=== PATIENT | male | born 1995 | race Caucasian/White ===

== ENCOUNTER 2016-12-31 14:54 | Emergency (ER) | payer OTHER ==
[~2016-12-31] VITALS: Ht 175.2 cm; Wt 59.0 kg
[~2016-12-31 14:54] MED LIST: BACTRIM DS 8001 TA1 PO; BACTROBAN CREAM15 GM T; KEFLEX500 M1 PO
[2016-12-31] MEDS ORDERED: PREDNISONE20 M1 PO (16:36)
[2016-12-31] MEDS ORDERED: ALBUTEROL2.5 MG/0.5 INH (16:36)
== END 2016-12-31 16:36 | disposition home or self-care (01) ==
LOC: ED 14:54
DX: J45.901 Unspecified asthma with (acute) exacerbation (principal); F17.200 Nicotine dependence, unspecified, uncomplicated

== ENCOUNTER 2017-01-08 15:10 | Emergency (ER) | payer OTHER ==
[~2017-01-08] VITALS: Ht 175.2 cm; Wt 59.0 kg
[~2017-01-08 15:10] MED LIST changes: +ALBUTEROL2.5 MG/0.5 INH; +PREDNISONE20 M1 PO
[2017-01-08] MEDS ORDERED: PROAIR HFA8.5 GM INH (15:40)
[2017-01-08] MEDS ORDERED: ZITHROMAX250 MG PO (15:40)
== END 2017-01-08 16:33 | disposition home or self-care (01) ==
LOC: ED 15:10
DX: J45.909 Unspecified asthma, uncomplicated (principal); F17.200 Nicotine dependence, unspecified, uncomplicated

== ENCOUNTER 2019-07-20 12:17 | Emergency (ER) | payer OTHER ==
[~2019-07-20 12:17] MED LIST changes: +PROAIR HFA8.5 GM INH; +ZITHROMAX250 MG PO
[2019-07-20] MEDS ORDERED: CEPHALEXIN500 M1 PO (13:47)
== END 2019-07-20 14:03 | disposition home or self-care (01) ==
LOC: ED 12:17
DX: S62.633A Displaced fracture of distal phalanx of left middle finger, initial encounter for closed fracture (principal); S61.213A Laceration without foreign body of left middle finger without damage to nail, initial encounter; J45.909 Unspecified asthma, uncomplicated; Z79.899 Other long term (current) drug therapy; W22.8XXA Striking against or struck by other objects, initial encounter; Y93.89 Activity, other specified; Y92.89 Other specified places as the place of occurrence of the external cause; Y99.8 Other external cause status

== ENCOUNTER 2019-08-03 12:48 | Emergency (ER) | payer OTHER ==
[~2019-08-03] VITALS: Wt 63.5 kg
[~2019-08-03 12:48] MED LIST changes: +CEPHALEXIN500 M1 PO
== END 2019-08-03 13:13 | disposition home or self-care (01) ==
LOC: ED 12:48
DX: S61.213D Laceration without foreign body of left middle finger without damage to nail, subsequent encounter (principal); J45.909 Unspecified asthma, uncomplicated; Z48.02 Encounter for removal of sutures; X58.XXXD Exposure to other specified factors, subsequent encounter

== ENCOUNTER 2020-07-27 17:38 | Emergency (ER) | payer OTHER ==
[~2020-07-27] VITALS: Wt 59.0 kg
[2020-07-27 18:38] LABS: BASO # 0.1 10*3/uL (0.0-0.1); BASO % 0.5 % (0.0-1.0); EOS % 9.1 % (1.0-4.0); HEMATOCRIT 48.5 % (42.0-52.0); LYMPH # 3.1 10*3/uL (1.3-4.4); LYMPH % 29.4 % (27.0-41.0); MEAN CELL VOLUME 86.8 fl (80.0-94.0); MEAN CORPUSCULAR HGB 30.1 pg (27.0-31.0); MEAN CORPUSCULAR HGB CONC 34.6 g/dl (33.0-37.0); MEAN PLATELET VOLUME 9.5 fl (9.6-12.3); MONO # 0.8 10*3/uL (0.1-1.0); MONO % 7.4 % (3.0-9.0); NEUT # 5.7 10*3/uL (2.3-7.9); NEUT % 53.3 % (47.0-73.0); PLATELET COUNT AUTOMATED 340 10*3/uL (130-400); RED BLOOD COUNT 5.59 10*6/uL (4.50-5.90); RED CELL DISTRI WIDTH 12.3 % (0-14.5); WHITE BLOOD COUNT 10.6 10*3/uL (4.8-10.8)
[2020-07-27 18:52] LABS: ALBUMIN 4.4 gm/dl (3.1-4.5); ALKALINE PHOSPHATASE 85 U/L (45-117); BUN 17 mg/dl (7-24); CHLORIDE 107 mmol/L (98-107); CREATININE 0.97 mg/dL (0.70-1.30); POTASSIUM 3.8 mmol/L (3.5-5.1); SGOT/AST 19 IU/L (3-35); SGPT/ALT 19 U/L (12-78); SODIUM 139 mmol/L (136-145); TOTAL PROTEIN 8.2 gm/dL (6.4-8.2)
[2020-07-27] MEDS ORDERED: PROVENTIL HFA6.7 GM INH (20:37)
[2020-07-27] MEDS ORDERED: PREDNISONE10 M1 PO (20:37)
== END 2020-07-27 20:42 | disposition home or self-care (01) ==
LOC: ED 17:38
PROVIDERS: Emergency Medicine
DX: J45.901 Unspecified asthma with (acute) exacerbation (principal); Z79.899 Other long term (current) drug therapy

== ENCOUNTER 2021-02-10 09:37 | Emergency (ER) | payer OTHER ==
[~2021-02-10] VITALS: Ht 175.2 cm; Wt 59.0 kg
[~2021-02-10 09:37] MED LIST changes: +PREDNISONE10 M1 PO; +PROVENTIL HFA6.7 GM INH
[2021-02-10] MEDS ORDERED: GENTACIDIN5 ML OP (11:11)
== END 2021-02-10 11:30 | disposition home or self-care (01) ==
LOC: ED 09:37
DX: T15.01XA Foreign body in cornea, right eye, initial encounter (principal); Z79.899 Other long term (current) drug therapy; Z79.2 Long term (current) use of antibiotics; X58.XXXA Exposure to other specified factors, initial encounter; Y93.89 Activity, other specified; Y92.89 Other specified places as the place of occurrence of the external cause; Y99.8 Other external cause status

== ENCOUNTER 2021-08-01 16:47 | Emergency (ER) | payer OTHER ==
[~2021-08-01] VITALS: Ht 172.7 cm; Wt 61.2 kg
[~2021-08-01 16:47] MED LIST changes: +GENTACIDIN5 ML OP
[2021-08-01] MEDS ORDERED: PROAIR HFA8.5 GM INH ×2 (17:42)
[2021-08-01] MEDS ORDERED: PREDNISONE50 MG PO ×2 (17:42)
== END 2021-08-01 17:52 | disposition home or self-care (01) ==
LOC: ED 16:47
DX: J45.909 Unspecified asthma, uncomplicated (principal); F17.200 Nicotine dependence, unspecified, uncomplicated; Z76.0 Encounter for issue of repeat prescription; Z79.899 Other long term (current) drug therapy

== ENCOUNTER 2021-08-08 10:19 | Emergency (ER) | payer OTHER ==
[~2021-08-08] VITALS: Ht 170.1 cm; Wt 61.2 kg
[~2021-08-08 10:19] MED LIST changes: +PREDNISONE50 MG PO
[2021-08-08 10:48] LABS: BASO # 0.1 10*3/uL (0.0-0.1); BASO % 0.7 % (0.0-1.0); EOS # 0.8 10*3/uL (0.0-0.4); EOS % 8.4 % (1.0-4.0); HEMATOCRIT 46.4 % (42.0-52.0); LYMPH # 3.3 10*3/uL (1.3-4.4); LYMPH % 34.3 % (27.0-41.0); MEAN CORPUSCULAR HGB 30.7 pg (27.0-31.0); MEAN CORPUSCULAR HGB CONC 34.9 g/dl (33.0-37.0); MEAN PLATELET VOLUME 8.9 fl (9.6-12.3); MONO # 0.7 10*3/uL (0.1-1.0); MONO % 7.2 % (3.0-9.0); NEUT # 4.7 10*3/uL (2.3-7.9); NEUT % 49.1 % (47.0-73.0); PLATELET COUNT AUTOMATED 323 10*3/uL (130-400); RED BLOOD COUNT 5.27 10*6/uL (4.50-5.90); RED CELL DISTRI WIDTH 12.3 % (0-14.5); WHITE BLOOD COUNT 9.6 10*3/uL (4.8-10.8)
[2021-08-08 10:59] LABS: ACT PARTIAL THROMBO TIME 26.2 SECONDS (20.0-32.1)
[2021-08-08 11:11] LABS: BUN 11 mg/dl (7-24); CHLORIDE 103 mmol/L (98-107); CREATININE 0.93 mg/dL (0.70-1.30); POTASSIUM 3.9 mmol/L (3.5-5.1); SODIUM 137 mmol/L (136-145)
[2021-08-08] MEDS ORDERED: NAPROXEN250 MG PO (15:50)
[2021-08-08] MEDS ORDERED: CEPHALEXIN500 M1 PO (15:50)
[2021-08-08] MEDS ORDERED: HYDROCODONE-AC1 EAC1 PO (15:50)
== END 2021-08-08 16:09 | disposition home or self-care (01) ==
LOC: ED 10:19
PROVIDERS: Emergency Medicine
DX: S92.901B Unspecified fracture of right foot, initial encounter for open fracture (principal); F17.200 Nicotine dependence, unspecified, uncomplicated; Z79.899 Other long term (current) drug therapy; W23.0XXA Caught, crushed, jammed, or pinched between moving objects, initial encounter; Y93.89 Activity, other specified; Y92.89 Other specified places as the place of occurrence of the external cause; Y99.9 Unspecified external cause status

== ENCOUNTER 2022-02-13 17:06 | Emergency (ER) | payer OTHER ==
[~2022-02-13] VITALS: Wt 59.0 kg
[~2022-02-13 17:06] MED LIST changes: +HYDROCODONE-AC1 EAC1 PO; +NAPROXEN250 MG PO
[2022-02-13] MEDS ORDERED: PREDNISONE10 MG PO (17:36)
[2022-02-13] MEDS ORDERED: PROVENTIL HFA6.7 GM PO (17:36)
== END 2022-02-13 18:46 | disposition home or self-care (01) ==
LOC: ED 17:06
DX: J45.901 Unspecified asthma with (acute) exacerbation (principal)

== ENCOUNTER 2022-07-26 16:21 | Emergency (ER) | payer OTHER ==
[~2022-07-26] VITALS: Wt 55.8 kg
[~2022-07-26 16:21] MED LIST changes: +PREDNISONE10 MG PO; +PROVENTIL HFA6.7 GM PO
[2022-07-26] MEDS ORDERED: PREDNISONE50 MG PO (17:52)
== END 2022-07-26 17:57 | disposition home or self-care (01) ==
LOC: ED 16:21
DX: J45.901 Unspecified asthma with (acute) exacerbation (principal); F90.9 Attention-deficit hyperactivity disorder, unspecified type

== ENCOUNTER 2022-09-10 06:29 | Emergency (ER) | payer OTHER ==
[~2022-09-10] VITALS: Ht 175.2 cm; Wt 59.0 kg
[2022-09-10] MEDS ORDERED: PREDNISONE20 M1 PO (06:49)
[2022-09-10] MEDS ORDERED: ZITHROMAX250 MG PO (06:49)
== END 2022-09-10 06:53 | disposition home or self-care (01) ==
LOC: ED 06:29
DX: J45.901 Unspecified asthma with (acute) exacerbation (principal); F90.9 Attention-deficit hyperactivity disorder, unspecified type; F17.200 Nicotine dependence, unspecified, uncomplicated

== ENCOUNTER 2023-08-07 10:09 | Emergency (ER) | payer SELFPAY ==
[~2023-08-07] VITALS: Wt 59.0 kg
[2023-08-07 11:27] LABS: BILIRUBIN Negative (Negative); BLOOD 3+ (Negative); CLARITY Clear (Clear); COLOR Yellow (Yellow); GLUCOSE Negative (Negative); KETONE Negative (Negative); LEUKO ESTERASE Negative (Negative); NITRITE Negative (Negative); PH 5.5 (4.5-8.0); UROBILINOGEN 0.2 E.U./dl (0.0-1.0)
[2023-08-07 11:45] LABS: RBC TNTC rbc/hpf (0-2); WBC 0-2 wbc/hpf (0-5)
[2023-08-07 11:46] LABS: MUCOUS TRACE
[2023-08-07] MEDS ORDERED: AZITHROMYCIN 250 MG TAB PO ONE (12:05)
== END 2023-08-07 12:09 | disposition home or self-care (01) ==
LOC: ED 10:09
PROVIDERS: Internal Medicine
DX: R30.9 Painful micturition, unspecified (principal); Z20.2 Contact with and (suspected) exposure to infections with a predominantly sexual mode of transmission; J45.909 Unspecified asthma, uncomplicated; Z79.899 Other long term (current) drug therapy; Z79.2 Long term (current) use of antibiotics

== ENCOUNTER 2023-11-28 02:01 | Emergency (ER) | payer SELFPAY ==
[~2023-11-28] VITALS: Ht 175.2 cm; Wt 56.7 kg
[2023-11-28] MEDS ORDERED: Ketorolac Tromethamine 60 MG/2 ML VIAL IM ONE (02:10)
[2023-11-28] MEDS ORDERED: METHOCARBAMOL 500 MG TAB PO ONE (02:10)
[2023-11-28] MEDS ORDERED: NAPROXEN250 MG PO (02:12)
[2023-11-28] MEDS ORDERED: METHOCARBAMOL500 M1 PO (02:12)
== END 2023-11-28 02:30 | disposition home or self-care (01) ==
LOC: ED 02:01
DX: M54.6 Pain in thoracic spine (principal); F90.9 Attention-deficit hyperactivity disorder, unspecified type; J45.909 Unspecified asthma, uncomplicated

== ENCOUNTER 2024-09-01 02:20 | Emergency (ER) | payer OTHER ==
[~2024-09-01] VITALS: Ht 172.7 cm; Wt 61.2 kg
[~2024-09-01 02:20] MED LIST changes: +METHOCARBAMOL500 M1 PO
[2024-09-01] MEDS ORDERED: Ondansetron Hydrochloride 4 MG TAB SL ONE (02:45)
[2024-09-01] MEDS ORDERED: Acetaminophen/Hydrocodone 5 MG/325 MG TABLET PO ONE (02:45)
[2024-09-01] MEDS ORDERED: SILVER SULFADIAZINE 25 GM TUBE T ONE (02:45)
[2024-09-01] MEDS ORDERED: SILVADENE,SSD C50 GM T (03:06)
== END 2024-09-01 03:16 | disposition home or self-care (01) ==
LOC: ED 02:20
DX: T23.201A Burn of second degree of right hand, unspecified site, initial encounter (principal); T23.202A Burn of second degree of left hand, unspecified site, initial encounter; J45.909 Unspecified asthma, uncomplicated; Z79.899 Other long term (current) drug therapy; X08.8XXA Exposure to other specified smoke, fire and flames, initial encounter; Y93.89 Activity, other specified; Y92.090 Kitchen in other non-institutional residence as the place of occurrence of the external cause; Y99.8 Other external cause status